=== PATIENT | male | born 2000 | race Caucasian/White ===

== ENCOUNTER 2021-09-26 17:03 | Emergency (ER) | payer MEDICAID ==
[~2021-09-26] VITALS: Ht 175.3 cm; Wt 75.0 kg
[2021-09-26] MEDS ORDERED: IBUPROFEN 600MG TABLET PO ONE (18:30)
[2021-09-26 21:37] VITALS: BP 125/76
== END 2021-09-26 21:39 | disposition home or self-care (01) ==
LOC: ER 17:03
DX: S09.8XXA Other specified injuries of head, initial encounter (principal); S00.83XA Contusion of other part of head, initial encounter; Y08.89XA Assault by other specified means, initial encounter; Y93.89 Activity, other specified; Y92.9 Unspecified place or not applicable; Z88.0 Allergy status to penicillin
CPT/HCPCS: 70486; 99284